=== PATIENT | male | born 1965 | race Caucasian/White ===

== ENCOUNTER 2019-10-19 10:27 | Emergency (ER) | payer BC, SELFPAY ==
--- NOTE | ~2019-10-19 | CT_ITS ---
EXAMINATION: CT brain wo con INDICATION: Memory loss and dizziness COMPARISON: None TECHNIQUE: Standard unenhanced head CT. The dose-length product (DLP) was 605.33 mGy-cm. The mA was a djusted according to patient size. Iterative reconstruction technique was employed. FINDINGS: There is no intracranial hemorrhage, acute infarction, or abnormal mass lesion. The ventric les are normal. There is no abnormal mass effect or midline shift. The mccullough-white matter differentiat ion is normal. The basal cisterns are patent. The orbits are normal. There is mild mucosal thickening of the paranasal sinuses. IMPRESSION: 1. No acute intracranial abnormality. Reviewed, dictated and finalized at location A.
[2019-10-19 10:35] VITALS: BP 159/95; PULSE 72; RESP 14; TEMP 36.7; O2SAT 97
[2019-10-19 10:55] VITALS: BP 157/93
--- NOTE | 2019-10-19 10:58 | ECG_ITS ---
Measurements Intervals [place] Rate: 68 P: 37 LA: 192 QRS: -46 QRSD: 114 T: 54 QT: 379 QTc: 404 Interpretive Statements SINUS RHYTHM LEFT AXIS DEVIATION INTRAVENTRICULAR CONDUCTION DELAY DELAYED PRECORDIAL R/S TRANSITION BORDERLINE ECG Electronically Signed On 10-19-2019 12:03:00 CDT by Rigoberto Skinner D.O.
[2019-10-19] MEDS: SODIUM CHLORIDE 0.9% IV 1,000 ML 999 ML (11:09)
[2019-10-19 11:16] VITALS: BP 143/93; PULSE 71
[2019-10-19 11:16] LABS: Basophils Percent Auto 0.4 % (0.2-1.2); Eosinophils Absolute Auto 0.1 K/mm3 (0-0.3); Eosinophils Percent Auto 1.5 % (0-4.4); Hematocrit 44.3 % (42.0-52.0); Immature Granulocyte Absolute 0.02 K/mm3 (0.00-0.031); Immature Granulocyte Percent A 0.3 % (0-0.5); Lymphocytes Absolute Auto 2.59 K/mm3 (0.9-3.2); Lymphocytes Percent Auto 35.7 % (18.3-44.2); Mean Corpuscular HGB Conc 33.9 g/dl (32-36); Mean Corpuscular Hemoglobin 28.7 pg (26-34); Mean Corpuscular Volume 84.7 fl (80-100); Mean Platelet Volume 9.7 fl (7.4-10.4); Monocytes Absolute Auto 0.8 K/mm3 (0.1-0.6); Monocytes Percent Auto 10.6 % (2.6-8.5); Neutrophils Absolute Auto 3.7 K/mm3 (1.3-6.7); Neutrophils Percent Auto 51.5 % (45.5-73.1); Platelet Count Result 250 k/mm3 (150-375); Red Blood Count 5.23 M/mm3 (4.6-6.20); Red Cell Distribution Width 12.3 % (11.5-14.5); White Blood Count 7.3 K/mm3 (4.5-10.0)
--- NOTE | 2019-10-19 11:19 | PC.NURSE ---
verbal order received to initiate 1L IVF on patient per Dr. Castro. Report to KELSEA Yousif, to continue care.
[2019-10-19 11:23] LABS: Anion Gap 9 mmol/L (8-16); Blood Urea Nitrogen 24 mg/dL (9-20); Carbon Dioxide 23 mmol/L (22-30); Chloride 102 mmol/L (98-107); Estimated CRCL calculation 120 ml/min; Estimated Glomerular Filt Rate > 60; Glucose 129 mg/dL (75-110); Potassium 4.7 mmol/L (3.4-5.0); Sodium 134 mmol/L (137-145)
--- NOTE | 2019-10-19 11:32 | ED.DIZZY ---
HPI - Dizziness General Chief Complaint: Dizziness Stated Complaint: CVA? started yesterday Time Seen by Provider: 10/19/19 11:24 Source: patient and family (Father) Mode of arrival: ambulatory Limitations: no limitations History of Present Illness HPI Narrative: Patient presents with his father to the ED for dizziness. He said it started a couple hours before they came to the ED. he said he is very dizzy and off-balance. When asked about visual changes he said the floor seems to move. Denies blurry or double vision. He has not had nausea or vomiting. He has not had fever chills or sweats. He has had a slight cough. He was covered tested 3 weeks ago and it was negative. He has a slight headache at 3 or 4 out of 10. It is primarily posterior and near his neck. he said he has had some difficulty concentrating and difficulty getting his words out for the last couple days. He has no weakness, or peripheral sensory change. Surgeries include right knee arthroscopy, right shoulder, lumbar spine fusion. MD elicited complaint: dizziness and disequilibrium Pertinent past history: other (None) Onset (ago): hour(s) Timing: gradual onset Severity: moderate Description: sense of movement and off-balance Context: change in body position History of similar symptoms: No Exacerbating factors: movement/ambulation and change in body position Relieving factors: remaining still Associated symptoms: other (Headache) Related Data Home Medications Medication Instructions Recorded Confirmed Aleve 10/19/19 atorvastatin 10/19/19 tamsulosin mg PO 10/19/19 Allergies Allergy/AdvReac Type Severity Reaction Status Date / Time No Known Allergies Allergy Verified 10/19/19 11:17 Review of Systems Review of Systems: Narrative: CONSTITUTIONAL: Denies fever, chills, or sweats. EYES: Denies visual changes, redness, or discharge. ENT: Denies rhinorrhea, congestion, sore throat, or otalgia. CARDIOVASCULAR: Denies chest pain, palpitations, or edema. RESPIRATORY: He has a slight cough but not dyspnea. GASTROINTESTINAL: Denies abdominal pain, nausea, vomiting, or diarrhea. SKIN: Denies rash or itching. MUSCULOSKELETAL: Denies back pain, joint pain, or myalgia. NEUROLOGIC: He has headache, but not numbness, or weakness. All systems reviewed & are unremarkable except as noted in HPI and below PMFSH Past Medical History Medical History Ataxia Vertigo Surgical History Surgical History History of knee surgery History of lumbar fusion History of shoulder surgery Family History Family History (System 03/10/19 @ 14:54 by Francesca Simmons) Other Carcinoma of colon Diabetes mellitus Family history of hypercholesterolemia Social History Social History Smoking status: Never smoker Alcohol intake: current Gender identity (if verbalized by the patient): Male Exam Narrative: Exam Narrative: GENERAL: Well-appearing, well-nourished, and in no acute distress. HEAD: Normocephalic, atraumatic. EYES: PERRLA and EOMI. no nystagmus ENT: Nares clear, no rhinorrhea or epistaxis. Mucous membranes moist. TMs clear and shiny. NECK: Supple. CHEST: Clear to auscultation. No respiratory distress. HEART: Regular rate and rhythm. No murmur heard. Normal peripheral pulses. ABDOMEN: Soft, nontender, nondistended, normal active bowel sounds. EXTREMITIES: Normal range of motion. No edema. SKIN: Warm, dry, no rash. NEURO: No focal deficits. Alert and oriented x3. PSYCH: Normal mood and affect. Course Reevaluation(s) Reevaluation #1: Patient feels much better with the Antivert and the IV fluids. He can be discharged with nausea medicine and Antivert. Date: 10/19/19 Time: 12:55 Vital Signs Vital signs: Vital Signs Temperature 98.1 F 10/19/19 10:35 Pulse Rate 72 10/19/19 10:35 R
[2019-10-19] MEDS: MECLIZINE HCL 25 MG TABLET PO (11:37)
[2019-10-19 11:59] LABS: INR 1.1; Prothrombin Time 13.5 Seconds (11.1-14.7)
[2019-10-19 13:03] VITALS: BP 131/78; PULSE 64; RESP 18; O2SAT 98
== END 2019-10-19 13:05 | disposition home or self-care (01) ==
PROVIDERS: Emergency Provider Emergency Medicine; PCP Family Medicine Adolescent Medicine
DX: R42 Dizziness and giddiness (principal)
CPT/HCPCS: 36415; 70450; 80048; 85025; 85610; 93005; 96360; 99284; A9270; J7030

== ENCOUNTER 2019-12-13 18:08 | Emergency (ER) | payer OTHER, BC, SELFPAY ==
--- NOTE | ~2019-12-13 | XR_ITS ---
EXAMINATION: XR shoulder RT min 2V EXAM DATE: 12/13/2019 19:31 INDICATION: Right shoulder pain. Neck pain. TECHNIQUE: The following right shoulder projections obtained: frontal projection with internal rotati on, frontal projection with external rotation, Grashey, and scapular Y view (4+ views). There is no prior study for comparison. FINDINGS: There are orthopedic fixation devices in the glenoid. Patient has likely had surgical pan nge of the acromioclavicular joints. There is mild to moderate right shoulder osteoarthritis. The so ft tissue is unremarkable. IMPRESSION: Mild to moderate shoulder arthritis. Reviewed, dictated and finalized at location A.
[2019-12-13 18:12] VITALS: BP 156/96; PULSE 75; RESP 20; TEMP 36.2; O2SAT 96
[2019-12-13] MEDS: ONDANSETRON INJ 4 MG/2 ML VIAL IV PUSH (19:35)
[2019-12-13] MEDS: HYDROmorphone HCL INJ (*CRX) 1 MG/ML SYR IV PUSH (19:35)
--- NOTE | 2019-12-13 19:43 | ED.UPPEXIN ---
HPI - Extremity Injury (Upper) General Chief Complaint: Extremity Injury, Upper Stated Complaint: R shoulder injury Time Seen by Provider: 12/13/19 18:56 Source: patient Mode of arrival: ambulatory Limitations: no limitations History of Present Illness HPI narrative: This patient is a 54 year old male right hand dominant who presents for evaluation of right shoulder pain starting at 4 30 pm . He states he was lifting a propane tank when he developed severe right shoulder pain. He describes this pain as sharp shooting pain down his arm. He has not taken anything for his pain prior to arrival. He reports previous surgery to his right shoulder 12 years ago. complaint: injury to: right and shoulder Onset (ago): hour(s) (3) Related Data Home Medications Medication Instructions Recorded Confirmed Aleve PRN 10/19/19 tamsulosin mg PO HS 10/19/19 Allergies Allergy/AdvReac Type Severity Reaction Status Date / Time No Known Allergies Allergy Verified 12/13/19 18:20 Review of Systems Review of Systems: All systems reviewed & are unremarkable except as noted in HPI and below Constitutional: Constitutional: Denies chills and Denies fever(s) [facility] Past Medical History Medical History (Updated 12/14/19 @ 00:00 by Dulce Roy) Ataxia Vertigo Surgical History Surgical History History of knee surgery History of lumbar fusion History of shoulder surgery Family History Family History (System 03/10/19 @ 14:54 by Francesca Simmons) Other Carcinoma of colon Diabetes mellitus Family history of hypercholesterolemia Social History Social History Smoking status: Never smoker Alcohol intake: current Gender identity (if verbalized by the patient): Male Exam Const: General: alert Orientation/consciousness: patient oriented x3 HENMT: Head: normocephalic and atraumatic Face and sinus: face symmetric Eyes: EOM: EOMs intact bilaterally Neck: Neck: normal visual inspection and no lymphadenopathy Lymphatic: no lymphadenopathy noted Chest: Chest palpation & inspection: normal inspection of the chest Resp: Effort & Inspection: normal respiratory effort and no retractions Auscultation: clear to auscultation bilaterally Skin: General skin exam: normal color Rashes: no rashes Neuro: General: patient oriented x3 and moves all extremities Extrem: Other: right shoulder tenderness Course Reevaluation(s) Reevaluation #1: I have discussed with patient that xray does not show a dislocation. He has been given pain medication and sling for comfort. I discussed discharge plan. He will follow up with company physician tomorrow. Date: 12/13/19 Time: 20:08 Vital Signs Vital signs: Vital Signs Temperature 97.2 F L 12/13/19 18:12 Pulse Rate 75 12/13/19 18:12 Respiratory Rate 20 12/13/19 18:12 Blood Pressure 156/96 H 12/13/19 18:12 Pulse Oximetry 96 12/13/19 18:12 Temperature 98.4 F 12/13/19 20:12 Pulse Rate 87 12/13/19 20:12 Respiratory Rate 16 12/13/19 20:12 Blood Pressure 118/70 12/13/19 20:12 Pulse Oximetry 99 12/13/19 20:12 MDM - Extremity Injury (Upper) Imaging Data Radiologist's impression: ITS Impressions Shoulder X-Ray 12/13/19 19:35 IMPRESSION: Mild to moderate shoulder arthritis. Discharge Plan Discharge Clinical Impression: Osteoarthritis of right shoulder Patient Disposition: Home, Self-Care Condition: Stable Instructions: How to Use a Sling (ED), Shoulder Pain (ED) Additional Instructions: Follow up with your primary care physician or your orthopedic surgeon for evaluation of your right shoulder pain. Prescriptions: New naproxen 500 mg tablet 500 mg PO BID PRN (Reason: pain) Qty: 14 RF: 0 tramadol 50 mg tablet 50 mg PO Q6H PRN (Reason: pain) Qty: 7 RF: 0 No Action Rustam
[2019-12-13] MEDS: KETOROLAC 30 MG/ML VIAL (*BKC) IV PUSH (19:52)
[2019-12-13 20:12] VITALS: BP 118/70; PULSE 87; RESP 16; TEMP 36.9; O2SAT 99
== END 2019-12-13 20:25 | disposition home or self-care (01) ==
PROVIDERS: Emergency Provider General Practice; PCP Family Medicine Adolescent Medicine
DX: M19.011 Primary osteoarthritis, right shoulder (principal)
CPT/HCPCS: 73030; 96374; 96375; 99284; A4565; J1170; J1885; J2405

== ENCOUNTER 2020-01-08 06:44 | Outpatient (NON) | payer BC, SELFPAY ==
[2020-01-09 02:43] LABS: SARS-CoV-2 RNA PCR Negative
== END 2020-01-08 06:45 ==
PROVIDERS: PCP Family Medicine Adolescent Medicine; Visit Provider Family Medicine Adolescent Medicine
DX: Z20.828 Contact with and (suspected) exposure to other viral communicable diseases (principal); R50.9 Fever, unspecified; M79.10 Myalgia, unspecified site
CPT/HCPCS: 87635; C9803; U0003

== ENCOUNTER 2022-03-26 15:01 | Outpatient (CLI) | payer OTHER, SELFPAY ==
--- NOTE | ~2022-03-26 | US_ITS ---
EXAMINATION: US venous doppler LE RT DATE: 03/26/2022 15:35 INDICATION: Right calf pain. TECHNIQUE: Grayscale ultrasound images without and with compression and Doppler ultrasound images of the right lower extremity veins were obtained. COMPARISON: None. FINDINGS: The visualized portions of right common femoral vein, profunda (deep) femoral vein, femoral vein, pop liteal vein, peroneal veins, posterior tibial veins, and greater saphenous vein outflow are patent. IMPRESSION: 1. No deep venous thrombosis. Reviewed, dictated and finalized at location A. HEAD DOOR TECHNICIAN
== END 2022-03-26 15:02 | disposition home or self-care (01) ==
PROVIDERS: PCP Family Medicine Adolescent Medicine
DX: M79.662 Pain in left lower leg (principal)
CPT/HCPCS: 93971

== ENCOUNTER 2023-01-07 01:06 | Emergency (ER) | payer BC, SELFPAY ==
--- NOTE | ~2023-01-07 | XR_ITS ---
Portable chest x-ray Comparison: 03/28/2017 Clinical History: Cough Findings: Lungs are clear, without focal consolidation or pleural effusion. Cardiomediastinal silho uette is stable. Bones and soft tissues are unremarkable. Impression: Clear lungs. Reviewed, dictated and finalized at location M. NDER OPERATOR Impression: Clear lungs.
[2023-01-07 01:11] VITALS: BP 179/87; PULSE 77; RESP 20; TEMP 36.8; O2SAT 99
--- NOTE | 2023-01-07 01:17 | ECG_ITS ---
Measurements Intervals [place] Rate: 87 P: 15 TN: 186 QRS: 97 QRSD: 110 T: -3 QT: 358 QTc: 433 Interpretive Statements SINUS RHYTHM RIGHT AXIS DEVIATION PATTERN CONSISTENT WITH PULMONARY DISEASE BORDERLINE ST-T WAVE ABNORMALITY- INFERIOR LEADS BORDERLINE ECG COMPARED TO ECG 10/19/2019 10:52:10 NO SIGNIFICANT CHANGES Electronically Signed On 01-07-2023 6:37:58 STERILE PROCESSING TECHNOLOGIST by Rigoberto Skinner D.O.
[2023-01-07 02:18] LABS: Influenza A QL RT-PCR Negative (Negative); Influenza B QL RT-PCR Negative (Negative); RSV RNA, RT-PCR Negative (Negative); SARS-CoV-2 RNA PCR Negative (Negative)
[2023-01-07 02:35] VITALS: BP 153/110; PULSE 81; RESP 21; O2SAT 95; O2SAT 97
--- NOTE | 2023-01-07 03:28 | ED.GENADULT ---
HPI - General Adult General Chief complaint: Upper Respiratory Infection Stated complaint: SOB, chest soreness Time Seen by Provider: 01/07/23 02:13 History of Present Illness HPI narrative: This is a 57-year-old male presenting with cough x5 weeks. Patient says that his symptoms have been going up and down over the last 5 weeks. He was treated with antibiotics by his primary care physician for 10 days which did not really change his symptoms. He has tried multiple medications to help him with the cough including DayQuil, NyQuil, Mucinex and [place] drops. He is here today because he had a coughing fit earlier and now he is starting experienced chest pain when he coughs. He denies fever chills nausea vomiting, chest pain at rest, difficulty breathing or abdominal pain Related Data Home Medications Medication Instructions Recorded Confirmed multivitamin 1 tablet PO DAILY 10/22/21 10/23/21 naproxen sodium 220 mg capsule 220 mg PO Q8H PRN 10/22/21 10/23/21 (Aleve) Allergies Allergy/AdvReac Type Severity Reaction Status Date / Time No Known Allergies Allergy Verified 04/23/22 09:22 [facility] Past Medical History Medical History Ataxia Trigger middle finger of right hand Vertigo Surgical History Surgical History History of knee surgery x4 History of lumbar fusion History of shoulder surgery x4 Hx of appendectomy Family History Family History Father Acute myocardial infarction Colon polyp Family history of hypercholesterolemia Heart disease Cancer Sibling Acute myocardial infarction Family history of hypercholesterolemia Heart disease Mother Asthma Heart disease Grandparent Carcinoma of colon Colon polyp Diabetes mellitus Heart disease Other Carcinoma of colon Colon polyp Social History Social History Smoking status: Never smoker Second hand tobacco smoke exposure: Yes Alcohol intake: current Alcohol use details: Ocassional Substance use: never Substance use type: does not use Living arrangements: with family Occupation/Education: occupation Additional occupation/education comments: [employer] Gender identity (if verbalized by the patient): Male Sexual Orientation (if Verbalized by the Patient): Straight or Heterosexual Spiritual care concerns: No Agree to blood products: Yes Exam Narrative: APPEARANCE: No apparent distress. Head: atraumatic. EYES: EOMI, NOSE: Atraumatic NECK: Trachea midline RESPIRATORY: No increased rate of breathing, clear to auscultation, no wheezing, frequent coughing CARDIOVASCULAR: RRR, no peripheral edema ABDOMINAL: Non-distended MUSCULOSKELETAl: No obvious deformities NEURO: Alert. Moving 4/4 extremities SKIN:: Warm, dry. Normal color PSYCHIATRIC: Normal affect Course Vital Signs Vital signs: Vital Signs Temperature 98.3 F 01/07/23 01:11 Pulse Rate 77 01/07/23 01:11 Respiratory Rate 20 01/07/23 01:11 Blood Pressure 179/87 H 01/07/23 01:11 Pulse Oximetry 99 01/07/23 01:11 Oxygen Delivery Room Air 01/07/23 01:11 Temperature 98.3 F 01/07/23 01:11 Pulse Rate 81 01/07/23 02:35 Respiratory Rate 21 H 01/07/23 02:35 Blood Pressure 153/110 H 01/07/23 02:35 Pulse Oximetry 95 01/07/23 02:35 Oxygen Delivery Room Air 01/07/23 02:35 Medical Decision Making MDM Narrative Medical decision making narrative: -Course: 57-year-old male presenting with cough x5 weeks. Chest x-ray negative. EKG unremarkable. Patient given Motrin Tylenol and cough syrup. Vital signs stable and patient is well appearing. Patient be discharged primary care follow-up. -DDX includes but is not limited to: Post viral cough, bronchitis, viral syndrome, pna -Co-morbi
[2023-01-07 03:29] VITALS: BP 145/64; PULSE 70; RESP 17; O2SAT 93
[2023-01-07] MEDS: guaiFENesin/DEXTROMETHORPHAN 10 ML UDC PO (03:35)
[2023-01-07] MEDS: IBUPROFEN 400 MG TABLET 800 MG PO (03:35)
[2023-01-07] MEDS: ACETAMINOPHEN 500 MG TABLET 1000 MG PO (03:36)
== END 2023-01-07 03:55 | disposition home or self-care (01) ==
PROVIDERS: Emergency Provider Emergency Medicine; PCP Family Medicine Adolescent Medicine
DX: R05.9 Cough, unspecified (principal); Z20.822 Contact with and (suspected) exposure to COVID-19; Z79.1 Long term (current) use of non-steroidal anti-inflammatories (NSAID)
CPT/HCPCS: 71045; 87637; 93005; 99283; A9270

== ENCOUNTER → 2023-04-17 11:08 | Outpatient (CLI) | payer BC, SELFPAY ==
--- NOTE | ~2023-04-17 | US_ITS ---
EXAMINATION: US soft tissue abdomen DATE: 04/17/2023 11:27 INDICATION: Benign lipomatous neoplasm, unspecified. Left upper quadrant abdominal pain. TECHNIQUE: Multiple grayscale and Doppler ultrasound images of the abdomen were obtained. COMPARISON: None FINDINGS: In the left body wall, there are 3 subcutaneous hyperechoic masses measuring up to 7 mm. IMPRESSION: 1. Small subcutaneous masses in the left body wall, likely benign findings such as lipomas, hemangiom as, or inflammation. Reviewed, dictated and finalized at location A. [employer] IMPRESSION: 1. Small subcutaneous masses in the left body wall, likely benign findings such as lipomas, hemangiomas, or inflammation.
== END ==
PROVIDERS: PCP Nurse Practitioner Family; Visit Provider Nurse Practitioner Family
DX: D17.1 Benign lipomatous neoplasm of skin and subcutaneous tissue of trunk (principal)
CPT/HCPCS: 76705

== ENCOUNTER 2023-05-02 05:23 | Day surgery (SDC) | payer BC, SELFPAY ==
[2023-04-24 11:23] VITALS: BMI 40.1
--- NOTE | 2023-04-24 11:31 | PC.NURSE ---
Report to the Outpatient Waiting Room, entrance under the green pavilion located off [facility], at time 0745 on date 05/02/23. Planned Procedure Time: 0945. Time changes happen often and if your time is changed the preop area will call you the afternoon before. - You and your visitor will be asked to self-screen and do not enter if you have any COVID symptoms. - A mask is optional within the hospital at this time. Patients may have clear liquids (water, carbonated beverages, clear teas, apple juice) until 3 hours prior to surgery with a maximum of 20 ounces. - No food from midnight until time of surgery Take the following medications with a SIP of water the morning of surgery: NONE DO NOT STOP ANY OF YOUR OTHER PRESCRIPTION MEDICATIONS PRIOR TO SURGERY ?EXCEPT THE FOLLOWING Medications to discontinue per physician: VITAMINS Date to take last dose: 04/28/[address] MAURER REGARDING ALEVE. Please no make-up, nail belarusian, hairspray, perfume, deodorant, or body powder the day of surgery. No jewelry (including any body piercings) or valuables the day of surgery, leave them at home. Please take a shower or bath the night before, or the morning of, surgery with an antibacterial soap. Wear comfortable, loose fitting clothing. - Jewelry must be removed prior to entering the operating room. Rings and piercings that are not removed may be cut off. - The hospital will not accept responsibility for valuables. - Please leave all valuables, including medications, at home the day of surgery. If you are going home after surgery, a licensed team truck driver must drive you home. - NO public transportation without another adult if you receive anesthesia. - We recommend that an adult stay with you for 24 hours following discharge. - We also recommend that you do not drive, make important decision, drink alcoholic beverages, or take any drugs that were not prescribed by your health care provider for at least 24 hours after your discharge time. Follow any additional instructions given to you from your surgeon. If you or anyone in your household have experienced Covid symptoms in the past week, please notify your surgeon or the nurse liaison at the phone number below for possible testing. Telephone instructions given to PT - RACHNA VELA and asked if any additional questions and then verbalized understanding. Patient advised to call surgeon office or pre surgery nurse liaison [phone] if any additional questions.
[2023-05-02] VITALS (8 sets, daily range): BP systolic 139–161; BP diastolic 62–85; PULSE 73–89; RESP 11–16; TEMP 36.2; O2SAT 95–100
[2023-05-02] MEDS: LACTATED RINGERS 1,000 ML 30 ML IV CONT ×2 (07:45→11:00)
--- NOTE | 2023-05-02 08:08 | WPDANESEPPF ---
Anes - Initial Pre Proc Eval Procedure: Operation Date: 05/02/23 08:30 Proposed Procedures p Excision Lipoma Left Upper Quadrant Abdominal Wall, Left Lower Chest Wall Times Five, Excision Lipoma Left Mid and Lower Back Times Five - Tyree Sauer MD Date/Time: 05/02/23 08:08 Surgeon: Tyree Sauer MD Pre Op Diagnosis: Lipoma Left Back X 5, Lipoma Lt Chest Wall, Patient Data Age: 58 Gender: M Height: 1.8 m Weight: 128.4 kg Last Vital Signs Temp 36.2 C L 05/02/23 07:19 Pulse 89 05/02/23 07:19 Resp 16 05/02/23 07:19 BP 151/81 H 05/02/23 07:19 Pulse Ox 96 05/02/23 07:19 O2 Del Method Room Air 05/02/23 07:19 Allergies Allergy/AdvReac Type Severity Reaction Status Date / Time No Known Allergies Allergy Verified 05/02/23 06:58 Home Medications Medication Instructions Recorded Confirmed Type multivitamin 1 tablet PO DAILY 10/22/21 05/02/23 History tamsulosin 0.4 mg capsule 0.4 mg PO HS #90 caps 01/08/23 05/02/23 Rx atorvastatin 10 mg tablet 10 mg PO DAILY #90 tabs 04/05/23 05/02/23 Rx baclofen 10 mg tablet 10 mg PO TID PRN muscle spasm #30 04/24/23 04/24/23 Rx tabs naproxen sodium 220 mg tablet 220 mg PO BID PRN Pain 04/24/23 05/02/23 History (Aleve) Patient hx anesthesia problems: none Family hx anesthesia problems: none Results Review: All pre-operative results and documents have been reviewed as part of the pre-operative evaluation. [facility] Past Medical History Medical History (Updated 05/02/23 @ 08:09 by Giovanni Skinner MD) Ataxia Morbid (severe) obesity due to excess calories Trigger middle finger of right hand Vertigo Surgical History Surgical History History of knee surgery x4 History of lumbar fusion History of shoulder surgery x4 Hx of appendectomy Family History Family History Father Acute myocardial infarction Colon polyp Family history of hypercholesterolemia Heart disease Cancer Sibling Acute myocardial infarction Family history of hypercholesterolemia Heart disease Mother Asthma Heart disease Grandparent Carcinoma of colon Colon polyp Diabetes mellitus Heart disease Other Carcinoma of colon Colon polyp Social History Social History Smoking status: Never smoker Second hand tobacco smoke exposure: Yes Alcohol intake: current Alcohol use details: 1-2/MONTH Substance use: never Substance use type: does not use Living arrangements: with family Occupation/Education: occupation Additional occupation/education comments: [employer] Gender identity (if verbalized by the patient): Male Sexual Orientation (if Verbalized by the Patient): Straight or Heterosexual Spiritual care concerns: No Agree to blood products: Yes Anes - Eval Final PreProcedure Day of Procedure 05/02/23 08:08 Patient weight: morbidly obese Heart: regular rate and rhythm Lungs: clear to auscultation Airway: Mallampati scale class II Neurological: alert and oriented Last oral intake: >/= 8 hours ASA classification: III Emergent: no Anesthetic plan: proceed Anesthesia type and monitoring: general LMA and standard monitoring Results Review: All pre-operative results and documents have been reviewed as part of the pre-operative evaluation. Informed Consent: The patient's anesthetic plan and its attendant risks and benefits were discussed with the patient/family/POA. Questions were solicited and answers provided to the satisfaction of the patient/family/POA.
--- NOTE | 2023-05-02 08:39 | WPDHPUPDATE1 ---
History and Physical Update Update Date/Time: 05/02/23 08:39 History and Physical has been reviewed, including an updated exam of the patient. There are NO changes in the patient's condition. Risks, benefits, and alternatives have been discussed and questions answered. Patient agrees to proceed with procedure.
[2023-05-02] MEDS: ceFAZolin 3 GM/D5W 100 ML 100 ML IVPB (09:07)
[2023-05-02] MEDS: KETOROLAC 30 MG/ML VIAL (*BKC) IV PUSH (09:22)
[2023-05-02] MEDS: LIDO 1%/EPINEPHRINE 1:100,000 20 ML VIAL 30 ML INFILTRATE (09:35)
[2023-05-02] MEDS: BUPivacaine HCL 0.5% PF 30 ML VIAL INFILTRATE (09:36)
--- NOTE | 2023-05-02 09:41 | SUR.OPER ---
During pre-op assessment, this RN noticed consent form and surgeon's plan in H&P were not exactly the same. Upon verifying correct location of multiple lipomas with pt and MD, Dr. Sauer updated consent form but refused to change wording in H&P to match. Pt then taken to surgery.
--- NOTE | 2023-05-02 10:56 | P.OP_ITS ---
Procedure Note - Detailed Date of Procedure 05/02/23 Pre-op Diagnosis Multiple lipomas on left back left lower chest, and left lateral abdominal wall. Post-op Diagnosis Same Procedure Performed Excision of lipoma times 16 on left back, left lower chest wall, and left lateral abdominal wall. 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 Many of these lipomas were exquisitely tender to palpation. Presents now for excision of the palpable lipomas due to pain. Findings The patient had multiple lipomas as noted: Left back 3.5x2cm x3, 2x1.5cm x4, 2x1cm x2, and 1x1cm x2. Left lower chest wall and left lateral abdominal wall 2x1.5cm x2, 1.5x1cm x2, and 1x1cm x 1. Description of Procedure After informed consent was obtained patient brought to the operating room was placed in the right lateral decubitus position on the operating table under general LMA anesthesia. The area the left lower chest, left lateral abdominal wall, and left back region was all prepped draped usual sterile fashion. A time-out was then performed correctly identifying the patient as well as procedure to be performed and verified all the site marking all the palpable lipomas. He was given perioperative IV antibiotics. I then proceeded to perform excision of each of the lipomas in the respective noted areas a similar fashion. A transverse incision was made over each lipoma with a scalpel then d issection down through the dermis skin achieved electrocautery. Once I reached the capsule lipomatous mass on each of the areas I then spread around the capsule utilizing Metzenbaum scissors to dissected free the surrounding subcutaneous tissues. The lipomatous mass was then delivered up and out of the incision and then resected at its base utilizing electrocautery. This was done on the back x 11 and on the left chest wall and left abdominal wall x 5. All the incisions irrigated sterile saline solution hemostasis was achieved electrocautery. The subcutaneous tissues were then closed utilizing interrupted 3-0 Vicryl sutures and then the skin edges were all approximated utilizing a running subcuticular 4-0 Monocryl suture. All the incisions then cleaned and then skin glue was applied all the incisions. The patient tolerated the procedure well no complications. All sponges, needles, and instrument counts were correct at the end procedure. EBL was _30__cc. The patient was awakened and taken to recovery in stable and satisfactory condition. Implants None Estimated Blood Loss 30 Drains No Packing No Pathology Yes (All lipomas on the left back were sent in 1 group and all lipomas on the left lower chest wall and left lateral abdominal wall were all sent as a 2nd group.) Complications No immediate complications Condition Stable Disposition PACU [facility] Billing Surgery - Charge Forward: Surgery Billing
[2023-05-02 12:09] LABS: HIV 1/2 Ab P24 Ag Result Negative (Negative)
[2023-05-02] MEDS: oxyCODONE HCL (*CRX) 5 MG TAB IR PO (12:10)
[2023-05-02 15:10] LABS: Hepatitis B Surface Anti Res Negative
[2023-05-02 15:14] LABS: Hepatitis C Virus Antibody Negative (Negative)
== END 2023-05-02 12:50 | disposition home or self-care (01) ==
PROVIDERS: PCP Nurse Practitioner Family; Visit Provider Surgery
PROC: (CPT 21931; principal; 2023-05-02 08:30)
DX: D17.1 Benign lipomatous neoplasm of skin and subcutaneous tissue of trunk (principal); R27.0 Ataxia, unspecified; E66.01 Morbid (severe) obesity due to excess calories; Z68.39 Body mass index [BMI] 39.0-39.9, adult; Z79.1 Long term (current) use of non-steroidal anti-inflammatories (NSAID); Z98.1 Arthrodesis status; Z98.890 Other specified postprocedural states; Z82.49 Family history of ischemic heart disease and other diseases of the circulatory system; Z80.0 Family history of malignant neoplasm of digestive organs
CPT/HCPCS: 21931 ×3; 21930 ×8; 22902 ×3; 36415; 86703; 86706; 86803; 88304; A9270; G0432; J0690; J1100; J1885; J2250; J2405; J2704; J3010; J7120

== ENCOUNTER 2024-04-09 09:58 | Outpatient (CLI) | payer BC, SELFPAY ==
--- NOTE | ~2024-04-09 | NM_ITS ---
EXAMINATION: NM stress w perf spect multi DATE: 04/09/2024 13:05 INDICATION: Chest pain. TECHNIQUE: Rest images were obtained following intravenous administration of 9.7 mCi Tc99m tetrofosmi n (Luxr). The patient performed an exercise activity. At peak exercise, 31.2 mCi Tc99m tetrofosmin (Myoview) was administered intravenously, and stress images were obtained. Data was reconstructed in to short axis and horizontal and vertical long axis SPECT images. Gated SPECT images were also obtain ed. COMPARISON: None. FINDINGS: There is no definite reversible or fixed perfusion abnormality to suggest ischemia or infar ction. There is no segmental wall motion abnormality. Left ventricular ejection fraction measures 6 8%. IMPRESSION: 1. No definite ischemia or infarct. 2. Normal left ventricular ejection fraction measuring 68%. Reviewed, dictated and finalized at location A. NT PROSECUTION ATTORNEY
--- NOTE | 2024-04-09 10:11 | EST_ITS ---
Patient Info Name: Jayy Mcfarland Age: 59 years : 1965 Gender: Male Ht: 70 in Wt: 285 lbs BSA: 2.58 m2 HR: 83 bpm BP: 151 / 92 mmHg Exam Date: 04/09/2024 11:59 AM Exam Location: Echo Lab Patient Status: Outpatient Admit Date: 04/09/2024 Staff Ordering Physician: Gracia Cazares APRN Attending Provider: Gracia Cazares APRN Exercise Technologist: Isela Blue RDCS Exercise Physician: Rigoberto Skinner DO Exam Type: CA stress test treadmill w NM Study Info A nuclear stress test was performed. A nuclear stress test was performed. Summary 1. 1. Negative Jovanny exercise stress test for ischemic ST changes by ECG criteria. 2. 2. Reduced functional capacity, achieving 8.3 METs of workload. 3. 3. Baseline hypertension with hypertensive response to exercise. 4. 4. Appropriate HR response to exercise. 5. 5. Appropriate HR recovery at 1 minute post exercise. 6. 6. Nuclear scan to follow and will be reported separately. Please correlate with it. 7. 7. Patient informed of the above results. Protocol: Jovanny Stress ECG Details Stage: REST Duration (min): 1 min : 10 sec Speed (mph): 0.0 Grade (%): 0 HR (bpm): 65 SBP (mmHg): 151 DBP (mmHg): 92 METS: --- Stage: REST Duration (min): 3 min : 35 sec Speed (mph): 0.0 Grade (%): 0 HR (bpm): 79 SBP (mmHg): 151 DBP (mmHg): 92 METS: --- Stage: STAGE 1 Duration (min): 1 min : 0 sec Speed (mph): 1.7 Grade (%): 10 HR (bpm): 105 SBP (mmHg): 151 DBP (mmHg): 92 METS: --- Stage: STAGE 1 Duration (min): 2 min : 0 sec Speed (mph): 1.7 Grade (%): 10 HR (bpm): 114 SBP (mmHg): 151 DBP (mmHg): 92 METS: --- Stage: STAGE 1 Duration (min): 3 min : 0 sec Speed (mph): 1.7 Grade (%): 10 HR (bpm): 119 SBP (mmHg): 208 DBP (mmHg): 79 METS: --- Stage: STAGE 2 Duration (min): 1 min : 0 sec Speed (mph): 2.5 Grade (%): 12 HR (bpm): 124 SBP (mmHg): 208 DBP (mmHg): 79 METS: --- Stage: STAGE 2 Duration (min): 2 min : 0 sec Speed (mph): 2.5 Grade (%): 12 HR (bpm): 129 SBP (mmHg): 212 DBP (mmHg): 85 METS: --- Stage: STAGE 2 Duration (min): 3 min : 0 sec Speed (mph): 2.5 Grade (%): 12 HR (bpm): 135 SBP (mmHg): 212 DBP (mmHg): 85 METS: --- Stage: STAGE 3 Duration (min): 0 min : 40 sec Speed (mph): 3.4 Grade (%): 14 HR (bpm): 142 SBP (mmHg): 212 DBP (mmHg): 85 METS: --- Stage: RECOVERY Duration (min): 0 min : 19 sec Speed (mph): 0.0 Grade (%): 0 HR (bpm): 142 SBP (mmHg): 212 DBP (mmHg): 85 METS: --- Stage: RECOVERY Duration (min): 1 min : 19 sec Speed (mph): 0.0 Grade (%): 0 HR (bpm): 112 SBP (mmHg): 212 DBP (mmHg): 85 METS: --- Stage: RECOVERY Duration (min): 2 min : 19 sec Speed (mph): 0.0 Grade (%): 0 HR (bpm): 90 SBP (mmHg): 245 DBP (mmHg): 78 METS: --- Stage: RECOVERY Duration (min): 3 min : 19 sec Speed (mph): 0.0 Grade (%): 0 HR (bpm): 89 SBP (mmHg): 219 DBP (mmHg): 74 METS: --- Stage: RECOVERY Duration (min): 4 min : 19 sec Speed (mph): 0.0 Grade (%): 0 HR (bpm): 81 SBP (mmHg): 219 DBP (mmHg): 74 METS: --- Stage: RECOVERY Duration (min): 5 min : 2 sec Speed (mph): 0.0 Grade (%): 0 HR (bpm): 87 SBP (mmHg): 155 DBP (mmHg): 77 METS: --- Rest HR: 79 bpm Peak HR: 143 bpm Rest Sys BP: 151 mmHg Peak Sys BP: 245 mmHg Max Pred HR: 161 bpm % Max Pred HR: 89 % Target HR: 137 bpm Max RPP: 35,035 bpm*mmHg Ramirez Score: -5 BP Response: Patient exhibited a hypertensive response with stress Termination Reason: Reached target heart rate or workload Cardiac Symptoms: Shortness of breath Max ST Seg Deviation: 2 mm Total Time: 6 min : 40 sec Rest Landrum BP: 92 mmHg Peak Landrum BP: 78 mmHg Angina Score: None Total METS: 8.3 Resting ECG Sinus rhythm. Stress ECG No ST changes. Arrhythmias None. Report Signatures
--- OUTSIDE RECORDS SUMMARY | 2024-04-09 10:46 | XMS_ITS | Clinical Summary ---
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 Gender Identity Not on file Sexual Orientation Not on file Plan of Treatment Health Maintenance Due Date Last Done Comments Hepatitis C Virus (HCV) Screening 1965 TdaP Immunization 1965 Hepatitis B Immunization (1 of 3 - 19+ 3-dose series) 01/13/1984 Colonoscopy 2010 Colorectal Cancer Screening 2010 Cologuard 2015 Immunochemical Fecal Occult Blood 2015 Pneumococcal Immunization (5 0+ years) (1 of 1 - PCV) 2015 Zoster Immunization (1 of 2) 2015 PSA Discussion 01/13/2020 Influenza Immunization (#1) 2023 SARS-COV-2 Immunization ( season) 2023 03/07/2021, 07/12/2020 Respiratory Syncytial Virus (RSV) Immunization (Adult) (1 - 1-dose 75+ series) 01/13/2040 Meningococcal Immunization (ACWY) Aged Out No longer eligible b ased on patient's age to complete this topic Pneumococcal Immunization Combined Aged Out No longer eligible b ased on patient's age to complete this topic Rotavirus Immunization Aged Out No lo nger eligible based on patient's age to complete this topic
== END 2024-04-09 09:59 | disposition home or self-care (01) ==
PROVIDERS: PCP Nurse Practitioner Family; Visit Provider Nurse Practitioner Family
DX: R07.9 Chest pain, unspecified (principal); E78.00 Pure hypercholesterolemia, unspecified
CPT/HCPCS: 78452; 93017; A9502